=== PATIENT | male | born 1980 | race Caucasian/White ===

== ENCOUNTER 2017-02-28 22:57 | Emergency (ER) | payer SELFPAY ==
--- NOTE | 2017-02-28 23:59 | PDOC ---
History of Present Illness <Tio Gonsalez - Last Filed: 02/28/17 23:59> - General History Source: Patient Exam Limitations: No Limitations - History of Present Illness Initial Comments: The patient is a 37 yo M with a past medical history significant for substance abuse presents from [facility] after being rejected from detox due to testing positive for narcotics. The patient states he drank alcohol, smoked PCP and shot cocaine 3 hours ago. He is complaining of mild dizziness. The patient is a poor historian secondary to intoxication. <Eloisa Clifford - Last Filed: 03/01/17 00:19> - General Stated Complaint: intoxication Past History <Tio Gonsalez - Last Filed: 02/28/17 23:59> <Eloisa Clifford - Last Filed: 03/01/17 00:19> - Past Medical History Allergies/Adverse Reactions: Allergies Allergy/AdvReac Type Severity Reaction Status Date / Time No Known Allergies Allergy Verified 03/01/17 00:00 Home Medications: Ambulatory Orders NK [No Known Home Medication] 02/28/17 Review of Systems - Review of Systems Able to Perform ROS?: No (Intoxication) <Eloisa Clifford - Last Filed: 03/01/17 00:19> *Physical Exam - Vital Signs Last Vital Signs Temp Pulse Resp BP Pulse Ox 98.2 F 67 14 128/59 97 03/01/17 00:00 03/01/17 00:00 03/01/17 00:00 03/01/17 00:00 03/01/17 00:00 - Physical Exam Comments: GENERAL: AAOx3, in no acute distress. Sleepy. HEAD: No signs of trauma EYES: PERRLA, EOMI, sclera anicteric, conjunctiva clear ENT: Auricles normal inspection, hearing grossly normal, nares patent, oropharynx clear without exudates. Moist mucosa NECK: Normal ROM, supple, no lymphadenopathy, JVD, or masses LUNGS: Breath sounds equal, clear to auscultation bilaterally. No wheezes, and no crackles HEART: Regular rate and rhythm, normal S1 and S2, no murmurs, rubs or gallops ABDOMEN: Soft, nontender, normoactive bowel sounds. No guarding, no rebound. No masses EXTREMITIES: Normal range of motion, no edema. No clubbing or cyanosis. No cords, erythema, or tenderness NEUROLOGICAL: Cranial nerves II through XII grossly intact. Normal speech, normal gait SKIN: Warm, Dry, normal turgor, no rashes or lesions noted. <Eloisa Clifford - Last Filed: 03/01/17 00:19> Medical Decision Making - Medical Decision Making Will obtain labs. will reassess. <Eloisa Clifford - Last Filed: 03/01/17 00:19> *DC/Admit/Observation/Transfer - Attestations Physician Attestion: 02/28/17 23:59 I, Dr. Tio Gonsalez, attest that this document has been prepared under my direction and personally reviewed by me in its entirety. I further attest, that it accurately reflects all work, treatment, procedures and medical decision -making performed by me. <Tio Gonsalez - Last Filed: 02/28/17 23:59> - Attestations Scribe Attestion: Documentation prepared by Eloisa Clifford, acting as medical transcriber for Tio Gonsalez MD/DO. <Eloisa Clifford - Last Filed: 03/01/17 00:19>
[2017-03-01 00:02] VITALS: TEMP 98.2; BMI 25.2
[2017-03-01] MEDS ORDERED: FOLIC ACID INJECTION - 1 MG, THIAMINE HCL 100 MG, MULTIVIT INJECTION ADULT 10 ML in SOD... IVPB ONE (00:19)
[2017-03-01 00:51] LABS: EOSINOPHIL 0.7 % (0-4.5); MCH 29.5 pg (25.7-33.7); MCHC 33.6 g/dl (32.0-35.9); MEAN CELL VOLUME 87.8 fl (80-96); MEAN PLT VOLUME 8.8 fl (7.5-11.1); NEUTROPHILS 70.4 % (42.8-82.8); PLATELET COUNT 203 K/MM3 (134-434); RDW 14.3 % (11.9-15.9); WHITE BLOOD COUNT 7.8 K/mm3 (4.0-10.0)
[2017-03-01 01:04] LABS: INR 1.17 (0.82-1.09); PROTHROMBIN TIME (PATIENT) 12.9 SEC (9.98-11.88)
[2017-03-01 01:39] LABS: ANION GAP 10 (8-16); BILIRUBIN,TOTAL 0.6 mg/dL (0.2-1.0); CALCIUM 9.3 mg/dL (8.5-10.1); CO2 29 mmol/L (21-32); CREATININE 0.9 mg/dL (0.7-1.3); GLUCOSE,RANDOM 100 mg/dL (74-106); SGOT/AST 9 U/L (15-37); SGPT/ALT 21 U/L (12-78); TOT PROT 7.5 g/dl (6.4-8.2)
[2017-03-01 01:42] LABS: ALK PHOS 80 U/L (45-117); CPK 33 IU/L (39-308); TROPONIN I < 0.02 ng/ml (0.00-0.05)
--- NOTE | 2017-03-01 06:21 | PDOC ---
*Physical Exam - Vital Signs Last Vital Signs Temp Pulse Resp BP Pulse Ox 98.2 F 60 14 140/84 97 03/01/17 00:00 03/01/17 05:52 03/01/17 05:52 03/01/17 05:52 03/01/17 05:52 ED Treatment Course - LABORATORY CBC & Chemistry Diagram: 03/01/17 00:45 03/01/17 00:45 - ADDITIONAL ORDERS Additional order review: Laboratory Results 03/01/17 03/01/17 03/01/17 00:45 00:45 00:45 INR 1.17 H Sodium 141 Potassium 3.8 Chloride 102 Carbon Dioxide 29 Anion Gap 10 BUN 17 Creatinine 0.9 Creat Clearance w eGFR > 60 Random Glucose 100 Calcium 9.3 Total Bilirubin 0.6 AST 9 L ALT 21 Alkaline Phosphatase 80 Creatine Kinase 33 L Troponin I < 0.02 Total Protein 7.5 Albumin 4.0 Alcohol, Quantitative < 5.0 03/01/17 00:45 RBC 4.59 MCV 87.8 MCHC 33.6 RDW 14.3 MPV 8.8 Neutrophils % 70.4 Lymphocytes % 18.3 Monocytes % 9.6 Eosinophils % 0.7 Basophils % 1.0 *DC/Admit/Observation/Transfer Diagnosis at time of Disposition: Alcoholic intoxication Qualifiers: Complication of substance-induced condition: with unspecified complication Qualified Code(s): F10.929 - Alcohol use, unspecified with intoxication, unspecified - Discharge Dispostion Disposition: HOME Condition at time of disposition: Stable Admit: No - Patient Instructions Printed Discharge Instructions: DI for Alcohol Abuse
[2017-03-01 07:53] VITALS: BP 139/81; PULSE 81
[2017-03-01 07:54] LABS: URINE APPEARANCE SLCLOUDY; URINE BILIRUBIN NEGATIVE (NEGATIVE); URINE BLOOD NEGATIVE (NEGATIVE); URINE COLOR YELLOW; URINE GLUCOSE (UA) NEGATIVE (NEGATIVE); URINE KETONE NEGATIVE (NEGATIVE); URINE LEUK ESTERASE NEGATIVE (NEGATIVE); URINE NITRITE NEGATIVE (NEGATIVE); URINE PROTEIN NEGATIVE (NEGATIVE); URINE UROBILINOGEN NEGATIVE mg/dL (0.2-1.0)
--- NOTE | 2017-03-01 10:19 | EKG ---
Test Reason : Blood Pressure : / mmHG Vent. Rate : 059 BPM Atrial Rate : 059 BPM P-R Int : 170 ms QRS Dur : 100 ms QT Int : 442 ms P-R-T Axes : 067 051 061 degrees QTc Int : 437 ms SINUS BRADYCARDIA WITH SINUS ARRHYTHMIA OTHERWISE NORMAL ECG NO PREVIOUS ECGS AVAILABLE CLINICAL CORRELATION IS RECOMMENDED Confirmed by PRESTON HOPSON MD ([id number]) on 03/01/2017 10:19:08 AM Referred By: Confirmed By:PRESTON HOPSON MD
[2017-03-01 11:04] LABS: URINE MARIJUANA THC NEGATIVE ng/ml (CUTOFF=50)
== END 2017-03-01 07:52 | disposition home or self-care (01) ==
LOC: JER 22:57
DX: F10.929 Alcohol use, unspecified with intoxication, unspecified (principal)
CPT/HCPCS: 36415; 71010-TC; 80053; 80307; 81003; 84484; 85025; 85610; 93005; 93010; 99283-25

== ENCOUNTER 2020-02-29 15:16 | Inpatient (IN) | payer OTHER ==
--- NOTE | 2020-02-29 18:56 | BHS.RME ---
Substance Use & Tx History - Substance Use History Heroin Substance amount: 20 bags Frequency of use: Daily Substance route: Injection (ex: intravenous or skin popping) Date of Last Use: 02/29/20 Alcohol Substance amount: 1 pint of vodka Frequency of use: Daily Substance route: Oral Date of Last Use: 02/28/20 Xanax Substance amount: 1mg Frequency of use: Daily Substance route: Oral Date of Last Use: 02/27/20 Physical/Psych/Mental Status - Behavior General Behavior: Increased activity (restlessness, agitation) Eye Contact: Decreased Other Behaviors: Posturing - Cooperativeness Cooperativeness: Cooperative - Thinking Thought Processes: Goal Directed Thought content: Future oriented - Physical Health Problems Is patient presently having any pain?: Yes Does patient presently have any injuries (include location): Yes (track mcrae) Does patient currently have a fever: No COWS - Scale Resting Pulse: 2= [place] 101-120 Sweatin=Flushed/Facial Moisture Restless Observation: 1= Difficult to Sit Still Pupil Size: 0= Normal to Room Light Bone or Joint Aches: 4=Acute Joint/Muscle Pain Runny Nose/ Eye Tearin= Nasal Congestion GI Upset > 30mins: 1= Stomach Cramp Tremor Observation: 2= Slight Tremor Visible Yawning Observation: 1= 1-2x During Session Anxiety or Irritability: 2=Irritable/Anxious Goose Flesh Skin: 0=Smooth Skin COWS Score: 16 CIWA Nausea/Vomitin Muscle Tremors: 2 Anxiety: 4-Mod. Anxious/Guarded Agitation: 4-Moderately Restless Paroxysmal Sweats: 2 Orientation: 0-Oriented Tacttile Disturbances: 0-None Auditory Disturbances: 0-None Visual Disturbances: 0-None Headache: 0-None Present CIWA-Ar Total Score: 14 Treatment Recommendation - Level of Care Level of Care: Opioid Treatment Program (OTP)
--- NOTE | 2020-02-29 19:21 | HP ---
COWS - Scale Resting Pulse: 2= [place] 101-120 Sweatin=Flushed/Facial Moisture Restless Observation: 3= Extraneous Movement Pupil Size: 2= Moderately Dilated (Pupils = 5 mm) Bone or Joint Aches: 2= Severe Diffuse Aches Runny Nose/ Eye Tearin= Runny Nose/Eyes GI Upset > 30mins: 1= Stomach Cramp Tremor Observation: 4= Gross Tremor/Twitching Yawning Observation: 1= 1-2x During Session Anxiety or Irritability: 2=Irritable/Anxious Goose Flesh Skin: 0=Smooth Skin COWS Score: 21 CIWA Score Nausea/Vomitin Muscle Tremors: 2 Anxiety: 4-Mod. Anxious/Guarded Agitation: 4-Moderately Restless Paroxysmal Sweats: 2 Orientation: 0-Oriented Tacttile Disturbances: 0-None Auditory Disturbances: 0-None Visual Disturbances: 0-None Headache: 0-None Present CIWA-Ar Total Score: 14 - Admission Criteria [facility] Guidelines: Admission for Medically Managed Detox: Requires at least one of the followin. CIWA greater than 12 2. Seizures within the past 24 hours 3. Delirium tremens within the past 24 hours 4. Hallucinations within the past 24 hours 5. Acute intervention needed for co occurring medical disorder 6. Acute intervention needed for co occurring psychiatric disorder 7. Severe withdrawal that cannot be handled at a lower level of care (continued vomiting, continued diarrhea, abnormal vital signs) requiring intravenous medication and/or fluids 8. Patient presents the following: CIWA greater than 12 Admission Criteria Met: Admission criteria met Admitting History and Physical - Smoking History Smoking history: Current every day smoker Have you smoked in the past 12 months: No - Alcohol/Substance Use Hx Alcohol Use: Yes Admission ROS BHS - HPI Chief Complaint: Here to detox from heroin, benzo and alcohol, because I want to quit" Allergies/Adverse Reactions: Allergies Allergy/AdvReac Type Severity Reaction Status Date / Time No Known Allergies Allergy Verified 02/29/20 20:35 History of Present Illness: 40 yo presents w/ opioid and alcohol withdrawal seeking detox. LINDA: 0.0 UTox: + ORVILLE/FEN/MOR Denies seizures or overdoses. Alcohol use began at age 10. Currently drinks 1/5th vodka over 2 nights. Drinks 4 days/week. Denies sharing needles or works (uses needle exchange) Has a Narcan kit at home. Heroin use began at age 16. Currently uses 2 bundles/day/IV. Only used 1/2 bundle today. Cocaine use began at age 10. Currently using 1.5 gms/day/IV Nicotine use began at age 10. Smokes 1 PPD. PMHx: Denies significant MHHx: Anxiety - sometimes. Denies thoughts of harming self or others. SHx: Domiciled. Unemployed. Has legal issues - Has a Digital Experience Manager Search Terms: Jules Hyman, 1980Search Date: 02/29/2020 19:34:02 PM The Drug Utilization Report below displays all of the controlled substance prescriptions, if any, that your patient has filled in the last twelve months. The information displayed on this report is compiled from pharmacy submissions to the Department, and accurately reflects the information as submitted by the pharmacies. This report was requested by: Ruth Ann Wyatt | Reference #: [id number] There are no results for the search terms that you entered. Exam Limitations: No Limitations - Ebola screening Have you traveled outside of the country in the last 21 days: No (Denies known COVID exposure) Have you had contact with anyone from an Ebola affected area: No Have you been sick,other than usual withdrawal symptoms: No Do you have a fever: No - Review of Systems Constitutional: Chills, Diaphoresis, Weight Stable EENT: reports: Blurred Vision, Nose Congestion, Dental Problems (Missing a few teeth. Chews and swallows ok) Respiratory: reports: No Symptoms reported Cardiac: reports: No Symptoms Reported GI: reports: Constipated (Last BM soft - today), Abdominal cramping : reports: No Symptoms Reported Musculoskeletal: reports: Back Pain (r/t withdrawal), Muscle Pain (r/t withdr awal) Integumentary: reports: Bruising (from IV drug use) Neuro: reports: Tingling (In feet), Tremors Endocrine: reports: No Symptoms Reported Hematology: reports: No Symptoms Reported Psychiatric: reports: Mood/Affect Appropiate, Orientated x3, Agitated, Anxious Patient History - PPD History Previous Implant?: Yes Documented Results: Negative w/proof Implanted On Prior [facility] Admission?: No PPD to be Administered?: Yes - Smoking Cessation Smoking history: Current every day smoker Have you smoked in the past 12 months: Yes Aproximately how many cigarettes per day: 20 Hx Chewing Tobacco Use: No Initiated information on smoking cessation: Yes 'Breaking Loose' booklet given: 02/29/20 - Substance & Tx. History Hx Alcohol Use: Yes Hx Substance Use: Yes Substance Use Type: Alcohol, Cocaine, Heroin, Opiates, Tranquilizers (Occ BZO) Hx Substance Use Treatment: Yes (detox years ago.) - Substances abused Alcohol Substance route: Oral Frequency: 3-6 times per week Amount used: VODKA- 1 PT BEERS- 6PCK Age of first use: 10 Date of last use: 02/29/20 Heroin Substance route: Injection Frequency: Daily Amount used: 20BAGS Age of first use: 16 Date of last use: 02/29/20 Benzodiazepine (Klonopin) Substance route: Oral Frequency: 1-2 times per week Amount used: 0.5 Age of first use: 40 Date of last use: 02/26/20 Admission Physical Exam [facility] - Physical General Appearance: Yes: Nourished, Moderate Distress, Tremorous, Sweating, Anxious HEENTM: Yes: EOMI, Hearing grossly Normal, TEVIN (Pupils = 5 mm), Nasal Congestion, Rhinorrhea Respiratory: Yes: Lungs Clear, Normal Breath Sounds, No Respiratory Distress Neck: Yes: No masses,lesions,Nodules, Supple Breast: Yes: Breast Exam Deferred Cardiology: Yes: Regular Rhythm, Regular Rate, S1, S2 Abdominal: Yes: Non Tender, Flat, Soft, Increased Bowel Sounds Genitourinary: Yes: Within Normal Limits Back: Yes: Normal Inspection Musculoskeletal: Yes: full range of Motion, Gait Steady Extremities: Yes: Normal Capillary Refill, Tremors Neurological: Yes: soloist dancer II-XII NML intact, Fully Oriented, Alert, Motor Strength 5/5, Normal Mood/Affect, Normal Response Integumentary: Yes: Normal Color, Warm, Track [place] (Scattered needle mcrae and bruising at needle sites w/ increased erythema. 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 Current Visit: Yes Status: Chronic Comment: Old and new track mcrae Cleared for Admission [facility] - Detox or Rehab [facility] Level of Care: Medically Managed Detox Regimen/Protocol: Methadone/Librium Claeared for Rehab Admission: No Breathalyzer - Breathalyzer Breathalyzer: 0 Urine Drug Screen - Test Device Lot number: [id number] Expiration date: 11/14/21 - Control Is test valid?: Yes - Results Urine drug screen results: ORVILLE-Cocaine, FEN-Fentanyl, MOP-Opiates Inpatient Rehab Admission - Rehab Decision to Admit Inpatient rehab admission?: No
[2020-02-29] MEDS ORDERED: ACETAMINOPHEN 325 MG TABLET (FP) PO PRN ×2 (19:50)
[2020-02-29] MEDS ORDERED: NICOTINE POLACRILEX 2 MG GUM BUC PRN (19:50)
[2020-02-29] MEDS ORDERED: MENTHOL/PHENOL 1 EACH UD MM PRN (19:50)
[2020-02-29] MEDS ORDERED: MAGNESIUM CITRATE 300 ML BOTTLE PO PRN (19:50)
[2020-02-29] MEDS ORDERED: BISMUTH SUBSALICYLATE 524 MG/30 ML UD PO PRN (19:50)
[2020-02-29] MEDS ORDERED: MAG HYDROX/AL HYDROX/SIMETH 30 ML UNIT-DOSE CUP PO PRN (19:50)
[2020-02-29] MEDS ORDERED: MAGNESIUM HYDROX 2400MG/30ML ORAL SUSPENSION 30 ML CUP PO PRN (19:50)
[2020-02-29] MEDS ORDERED: ONDANSETRON *ODT* 4 MG TABLET SL ONE (20:30)
[2020-02-29] MEDS ORDERED: METHADONE HCL 10 MG TABLET (FOR DETOX USE ONLY) PO ONE (20:30)
[2020-02-29] MEDS ORDERED: chlordiazePOXIDE HCL 25 MG CAPSULE PO ONE (20:30)
[2020-02-29 20:52] VITALS: BMI 24.3
[2020-02-29] MEDS: THIAMINE HCL 100 MG TABLET (FP) PO SCH (23:00)
[2020-02-29] MEDS: MELATONIN 5 MG TABLETS PO SCH (23:00)
[2020-02-29] MEDS: chlordiazePOXIDE HCL 25 MG CAPSULE PO SCH (23:59)
[2020-03-01] MEDS: chlordiazePOXIDE HCL 25 MG CAPSULE PO SCH ×4 (06:52→22:41)
[2020-03-01] MEDS ORDERED: METHADONE HCL 5 MG TABLET (FOR DETOX USE ONLY) ONE (09:40)
[2020-03-01] MEDS ORDERED: METHADONE HCL 10 MG TABLET (FOR DETOX USE ONLY) ONE (09:40)
[2020-03-01] MEDS ORDERED: METHADONE (DETOX) 20 MG, METHADONE (DETOX) 5 MG PO ONE (10:00)
[2020-03-01] MEDS: NICOTINE 21 MG/24 HOURS TOPICAL PATCH TD SCH (10:43)
[2020-03-01] MEDS: PRENATAL VITAMINS W/ FOLIC ACID TABLET (FP) PO SCH (10:43)
[2020-03-01 11:58] LABS: HEMATOCRIT 35.8 % (35.4-49); HEMOGLOBIN 11.7 GM/dL (11.7-16.9); MCH 27.9 pg (25.7-33.7); MCHC 32.8 g/dl (32.0-35.9); MEAN CELL VOLUME 85.1 fl (80-96); MEAN PLT VOLUME 9.5 fl (7.5-11.1); PLATELET COUNT 236 K/MM3 (134-434); RDW 14.8 % (11.9-15.9); WHITE BLOOD COUNT 5.2 K/mm3 (4.0-10.0)
[2020-03-01 12:08] LABS: ALBUMIN 3.5 g/dl (3.4-5.0); BILIRUBIN,TOTAL 0.4 mg/dL (0.2-1); BLOOD UREA NITROGEN 10.5 mg/dL (7-18); CALCIUM 9.2 mg/dL (8.5-10.1); CREATININE 0.7 mg/dL (0.55-1.3); POTASSIUM 3.7 mmol/L (3.5-5.1); TOT PROT 7.6 g/dl (6.4-8.2)
--- NOTE | 2020-03-01 14:45 | PN ---
S CIWA - CIWA Score Nausea/Vomitin-No Nausea/No Vomiting Muscle Tremors: 2 Anxiety: 2 Agitation: 0-Normal Activity Paroxysmal Sweats: 4-Forehead w/Sweat Beads Orientation: 0-Oriented Tacttile Disturbances: 2-Mild Itch/Numbness/Burn Auditory Disturbances: 0-None Visual Disturbances: 2-Mild Sensitivity Headache: 0-None Present CIWA-Ar Total Score: 12 S COWS - Scale Resting Pulse: 0= [place] 80 or Below Sweatin=Flushed/Facial Moisture Restless Observation: 0= Sits Still Pupil Size: 0= Normal to Room Light Bone or Joint Aches: 1= Mild Discomfort Runny Nose/ Eye Tearin= None GI Upset > 30mins: 0= None Tremor Observation of Outstretched Hands: 0= None Yawning Observation: 1= 1-2x During Session Anxiety or Irritability: 2=Irritable/Anxious Goose Flesh Skin: 3=Piloerection COWS Score: 9 S Progress Note (SOAP) Subjective: Sweating, Anxious, Fatigue, Body Aches. Objective: Patient A & O X 3; In No Acute Distress. 03/01/20 14:43 Vital Signs Temperature 97.9 F 03/01/20 13:10 Pulse Rate 60 03/01/20 13:10 Respiratory Rate 19 03/01/20 13:10 Blood Pressure 114/72 03/01/20 13:10 O2 Sat by Pulse Oximetry (%) 98 03/01/20 13:10 Laboratory Tests 03/01/20 03/01/20 03/01/20 07:50 07:50 07:50 WBC 5.2 RBC 4.20 Hgb 11.7 Hct 35.8 MCV 85.1 MCH 27.9 MCHC 32.8 RDW 14.8 Plt Count 236 MPV 9.5 Sodium 142 Potassium 3.7 Chloride 109 H Carbon Dioxide 24 Anion Gap 9 BUN 10.5 Creatinine 0.7 Est GFR (CKD-EPI)AfAm 134.91 Est GFR (CKD-EPI)NonAf 116.40 Random Glucose 113 H Calcium 9.2 Total Bilirubin 0.4 AST 16 ALT 20 Alkaline Phosphatase 83 Total Protein 7.6 Albumin 3.5 Syphilis Serology Non-reactive Lab Results noted. Assessment: 03/01/20 14:44 WITHDRAWAL SYMPTOMS. Plan: Continue Detox. Increase Daily oral water intake.
[2020-03-01] MEDS: THIAMINE HCL 100 MG TABLET (FP) PO SCH (22:41)
[2020-03-01] MEDS: MELATONIN 5 MG TABLETS PO SCH (22:41)
[2020-03-01] MEDS: cloNIDine HCL 0.1 MG TABLET PO PRN (22:42)
[2020-03-02] MEDS: chlordiazePOXIDE HCL 25 MG CAPSULE PO SCH ×4 (05:53→23:11)
[2020-03-02] MEDS ORDERED: METHADONE HCL 10 MG TABLET (FOR DETOX USE ONLY) PO ONE (10:00)
[2020-03-02] MEDS: NICOTINE 21 MG/24 HOURS TOPICAL PATCH TD SCH (10:50)
[2020-03-02] MEDS: METHOCARBAMOL 500 MG TABLET PO PRN ×2 (10:51→18:18)
[2020-03-02] MEDS: PRENATAL VITAMINS W/ FOLIC ACID TABLET (FP) PO SCH (10:51)
[2020-03-02] MEDS: cloNIDine HCL 0.1 MG TABLET PO PRN ×2 (13:59→23:14)
--- NOTE | 2020-03-02 16:03 | PN ---
S CIWA - CIWA Score Nausea/Vomitin-Mild Nausea/No Vomiting Muscle Tremors: 2 Anxiety: 2 Agitation: 2 Paroxysmal Sweats: 2 Orientation: 0-Oriented Tacttile Disturbances: 1-Very Mild Itch/Numbness Auditory Disturbances: 0-None Visual Disturbances: 0-None Headache: 0-None Present CIWA-Ar Total Score: 10 BHS COWS - Scale Resting Pulse: 1= [place] 81-100 Sweatin= Chills/Flushing Restless Observation: 0= Sits Still Pupil Size: 0= Normal to Room Light Bone or Joint Aches: 1= Mild Discomfort Runny Nose/ Eye Tearin= Runny Nose/Eyes GI Upset > 30mins: 1= Stomach Cramp Tremor Observation of Outstretched Hands: 2= Slight Tremor Visible Yawning Observation: 0= None Anxiety or Irritability: 2=Irritable/Anxious Goose Flesh Skin: 0=Smooth Skin COWS Score: 10 BHS Progress Note (SOAP) Subjective: Restless, irritable, runny nose, sneezing, diarrhea, legs aching, interrupted sleep Objective: 03/02/20 16:01 Last Vital Signs Temp Pulse Resp BP Pulse Ox 98.4 F 90 20 118/67 98 03/02/20 13:05 03/02/20 13:05 03/02/20 13:05 03/02/20 13:05 03/02/20 13:05 Laboratory Tests 02/29/20 03/01/20 03/01/20 20:30 07:50 07:50 WBC 5.2 RBC 4.20 Hgb 11.7 Hct 35.8 MCV 85.1 MCH 27.9 MCHC 32.8 RDW 14.8 Plt Count 236 MPV 9.5 Sodium 142 Potassium 3.7 Chloride 109 H Carbon Dioxide 24 Anion Gap 9 BUN 10.5 Creatinine 0.7 Est GFR (CKD-EPI)AfAm 134.91 Est GFR (CKD-EPI)NonAf 116.40 Random Glucose 113 H Calcium 9.2 Total Bilirubin 0.4 AST 16 ALT 20 Alkaline Phosphatase 83 Total Protein 7.6 Albumin 3.5 Syphilis Serology COVID-19 (AMELIA) Not detected 03/01/20 07:50 WBC RBC Hgb Hct MCV MCH MCHC RDW Plt Count MPV Sodium Potassium Chloride Carbon Dioxide Anion Gap BUN Creatinine Est GFR (CKD-EPI)AfAm Est GFR (CKD-EPI)NonAf Random Glucose Calcium Total Bilirubin AST ALT Alkaline Phosphatase Total Protein Albumin Syphilis Serology Non-reactive COVID-19 (AMELIA) Labs reviewed: serum glucose 113 (high) Assessment: 03/02/20 16:02 Withdrawal sxs Noted with hyperglycemia Plan: Continue detox Encourage PO water intake Hyperglycemia, mild: denies DM, could be r/t withdrawal, repeat fasting glucose
--- NOTE | 2020-03-02 18:56 | EKG ---
Test Reason : Blood Pressure : / mmHG Vent. Rate : 091 BPM Atrial Rate : 091 BPM P-R Int : 158 ms QRS Dur : 100 ms QT Int : 400 ms P-R-T Axes : 055 030 054 degrees QTc Int : 492 ms NORMAL SINUS RHYTHM PROLONGED QT ABNORMAL ECG Confirmed by MD FAM, FELISHA ([id number]) on 03/02/2020 6:56:05 PM Referred By: GABRIELA WILKERSON Confirmed By:FELISHA OTTO MD
[2020-03-02] MEDS: THIAMINE HCL 100 MG TABLET (FP) PO SCH (23:11)
[2020-03-02] MEDS: MELATONIN 5 MG TABLETS PO SCH (23:11)
[2020-03-03] MEDS ORDERED: chlordiazePOXIDE HCL 10 MG CAPSULE PO PRN
[2020-03-03] MEDS: METHOCARBAMOL 500 MG TABLET PO PRN ×3 (01:36→17:59)
[2020-03-03] MEDS: chlordiazePOXIDE HCL 10 MG CAPSULE PO SCH ×4 (05:48→22:14)
[2020-03-03] MEDS ORDERED: METHADONE HCL 10 MG TABLET (FOR DETOX USE ONLY) ONE (09:03)
[2020-03-03] MEDS ORDERED: METHADONE HCL 5 MG TABLET (FOR DETOX USE ONLY) ONE (09:03)
[2020-03-03] MEDS ORDERED: METHADONE (DETOX) 10 MG, METHADONE (DETOX) 5 MG PO ONE (10:00)
--- NOTE | 2020-03-03 10:26 | PN ---
[facility] CIWA - CIWA Score Nausea/Vomitin-No Nausea/No Vomiting Muscle Tremors: 2 Anxiety: 2 Agitation: 2 Paroxysmal Sweats: 1-Minimal Palms Moist Orientation: 0-Oriented Tacttile Disturbances: 0-None Auditory Disturbances: 0-None Visual Disturbances: 0-None Headache: 0-None Present CIWA-Ar Total Score: 7 BHS COWS - Scale Resting Pulse: 1= [place] 81-100 Sweatin= Chills/Flushing Restless Observation: 1= Difficult to Sit Still Pupil Size: 0= Normal to Room Light Bone or Joint Aches: 1= Mild Discomfort Runny Nose/ Eye Tearin= Nasal Congestion GI Upset > 30mins: 0= None Tremor Observation of Outstretched Hands: 1= Tremor [place], Not Seen Yawning Observation: 0= None Anxiety or Irritability: 1=Feels Anxious/Irritable Goose Flesh Skin: 0=Smooth Skin COWS Score: 7 S Progress Note (SOAP) Subjective: sweats body aches interrupted sleep agitation irritable Objective: 03/03/20 10:23 Vital Signs Temperature 98.2 F 03/03/20 05:35 Pulse Rate 62 03/03/20 05:35 Respiratory Rate 18 03/03/20 05:35 Blood Pressure 113/57 L 03/03/20 05:35 O2 Sat by Pulse Oximetry (%) 97 03/03/20 05:35 Laboratory Tests 02/29/20 03/01/20 03/01/20 20:30 07:50 07:50 WBC 5.2 RBC 4.20 Hgb 11.7 Hct 35.8 MCV 85.1 MCH 27.9 MCHC 32.8 RDW 14.8 Plt Count 236 MPV 9.5 Sodium 142 Potassium 3.7 Chloride 109 H Carbon Dioxide 24 Anion Gap 9 BUN 10.5 Creatinine 0.7 Est GFR (CKD-EPI)AfAm 134.91 Est GFR (CKD-EPI)NonAf 116.40 Random Glucose 113 H Calcium 9.2 Total Bilirubin 0.4 AST 16 ALT 20 Alkaline Phosphatase 83 Total Protein 7.6 Albumin 3.5 Syphilis Serology COVID-19 (AMELIA) Not detected 03/01/20 07:50 WBC RBC Hgb Hct MCV MCH MCHC RDW Plt Count MPV Sodium Potassium Chloride Carbon Dioxide Anion Gap BUN Creatinine Est GFR (CKD-EPI)AfAm Est GFR (CKD-EPI)NonAf Random Glucose Calcium Total Bilirubin AST ALT Alkaline Phosphatase Total Protein Albumin Syphilis Serology Non-reactive COVID-19 (AMELIA) labs noted aaox3 ambulating no acute distress Assessment: 03/03/20 10:25 withdrawal sx Plan: continue detox increase fluids
[2020-03-03] MEDS: NICOTINE 21 MG/24 HOURS TOPICAL PATCH TD SCH (10:49)
[2020-03-03] MEDS: PRENATAL VITAMINS W/ FOLIC ACID TABLET (FP) PO SCH (10:49)
[2020-03-03] MEDS: IBUPROFEN 400 MG TABLET (FP) PO PRN (14:27)
[2020-03-03] MEDS: THIAMINE HCL 100 MG TABLET (FP) PO SCH (22:14)
[2020-03-03] MEDS: MELATONIN 5 MG TABLETS PO SCH (22:14)
[2020-03-04] MEDS: IBUPROFEN 400 MG TABLET (FP) PO PRN (00:47)
[2020-03-04] MEDS: METHOCARBAMOL 500 MG TABLET PO PRN (00:48)
[2020-03-04] MEDS ORDERED: chlordiazePOXIDE HCL 10 MG CAPSULE PO SCH (05:00)
--- NOTE | 2020-03-04 06:38 | DS ---
[facility] Detox Discharge Summary Admission Date: 02/29/20 Discharge Date: 03/04/20 - History Additional Comments: called by nursing for pt who wants to leave. Pt states he has to leave out of town , planning to go to [place] station and take the [employer] rain to go to a . Denies complaints . States he has leftover Methadone bottle from prior MMTP . Pt was educated about the risks of leaving without completing detox , including relapse , overdose. Pt verbalized understanding and indicated he wished to proceed with discharge. Declined further medical assistance . Ambulating freely , no distress noted . Vital Signs - 24 hr 03/03/20 03/03/20 03/03/20 09:02 13:02 17:55 Temperature 97.1 F L 99.3 F 98.2 F Pulse Rate 86 64 89 Respiratory 18 18 18 Rate Blood Pressure 104/63 117/58 L 125/73 O2 Sat by Pulse 98 98 Oximetry (%) 03/03/20 21:41 Temperature 98.2 F Pulse Rate 69 Respiratory 18 Rate Blood Pressure 118/71 O2 Sat by Pulse 97 Oximetry (%) - Physical Exam Results Vital Signs: Vital Signs Temperature 98.2 F 03/03/20 21:41 Pulse Rate 69 03/03/20 21:41 Respiratory Rate 18 03/03/20 21:41 Blood Pressure 118/71 03/03/20 21:41 O2 Sat by Pulse Oximetry (%) 97 03/03/20 21:41 - Medication Discharge Medications: Ambulatory Orders NK [No Known Home Medication] 02/28/17 - AMA Did Patient Leave Against Medical Advice: Yes
[2020-03-04 07:08] VITALS: BP 137/75; PULSE 86; TEMP 98.1
[2020-03-04] MEDS ORDERED: METHADONE HCL 10 MG TABLET (FOR DETOX USE ONLY) PO ONE (10:00)
[2020-03-05] MEDS ORDERED: chlordiazePOXIDE HCL 10 MG CAPSULE PO ONE (05:00)
[2020-03-05] MEDS ORDERED: METHADONE HCL 5 MG TABLET (FOR DETOX USE ONLY) PO ONE (06:00)
== END 2020-03-04 06:21 | disposition left against medical advice (07) | DRG 770 ==
LOC: YASAS 15:16 → Y6N 19:28
PROVIDERS: ADMIT Allergy & Immunology; ATTEND Allergy & Immunology
PROC: HZ2ZZZZ Detoxification Services for Substance Abuse Treatment (ICD-10-PCS; principal; 2020-02-29)
DX: F11.23 Opioid dependence with withdrawal (principal); F10.230 Alcohol dependence with withdrawal, uncomplicated; F13.20 Sedative, hypnotic or anxiolytic dependence, uncomplicated; F14.20 Cocaine dependence, uncomplicated; F17.210 Nicotine dependence, cigarettes, uncomplicated; R94.31 Abnormal electrocardiogram [ECG] [EKG]; R73.9 Hyperglycemia, unspecified; Z56.0 Unemployment, unspecified
CPT/HCPCS: 36415; 80053; 85027; 86780; 93005; 93010; J0735; Q0162; U0003